=== PATIENT | male | born 2000 | race Caucasian/White ===

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

== ENCOUNTER 2021-01-02 01:34 | Emergency (ER) | payer MEDICARE, OTHER ==
[~2021-01-02] VITALS: Ht 177.8 cm; Wt 95.3 kg
[2021-01-02 01:35] VITALS: BP_SYST 135
--- NOTE | 2021-01-02 01:35 | NUR ---
Pt ambulatory to be 8 for evaluation
--- NOTE | 2021-01-02 01:40 | NUR ---
ER Dr. KURTZ at bedside examining patient.
--- NOTE | 2021-01-02 01:48 | NUR ---
X-ray of rt fingers done at bedside by tech
--- NOTE | 2021-01-02 02:00 | NUR ---
PATIENT AAOX4 AND AMBULATORY ARRIVED WITH LAC TO RIGHT 5TH DIGIT D/T SHATTERED GLASS. VSS. DENIES ANY PAIN. NOT CURRENLY BLEEDING. NO SIGNS OF INFECTION. ABLE TO MOVE FINGER WITHOUT DIFFICULTIES.
[2021-01-02] MEDS: DIPH-TET-PERTUS Vaccine 0.5 ML VIAL (ADACEL) I.M. ONE (02:12)
[2021-01-02] MEDS: cephALEXin 500 MG CAPSULE PO ONE (02:13)
[2021-01-02] MEDS ORDERED: CEPH-548 PO (02:21)
[2021-01-02] MEDS ORDERED: BACITRACIN 1 GM OINT TP ONE (02:48)
[2021-01-02 02:56] VITALS: BP_SYST 135
--- NOTE | 2021-01-02 02:57 | NUR ---
Patient given written and verbal discharge instructions and verbalizes understanding. DR. TESSIE MOSCOSO MD discussed with patient the results and treatment provided. Patient in stable condition. ID arm band removed. Rx of KEFLEX given. Patient educated on pain management and to follow up with PMD. Pain Scale 0/10. Opportunity for questions provided and answered. Medication side effect fact sheet provided.
== END 2021-01-02 02:57 | disposition home or self-care (01) ==
LOC: SED 01:34
DX: S61.216A Laceration without foreign body of right little finger without damage to nail, initial encounter (principal); Z79.899 Other long term (current) drug therapy; W25.XXXA Contact with sharp glass, initial encounter; Y93.89 Activity, other specified; Y92.89 Other specified places as the place of occurrence of the external cause; Y99.8 Other external cause status
CPT/HCPCS: 73140-TC; 90715; 99283